=== PATIENT | female | born 1980 | race Caucasian/White ===

== ENCOUNTER → 2016-07-31 | Outpatient (CLI) | payer BC, OTHER | LOC: BMCIMAGING 13:47 | PROVIDERS: ATTEND Physician Assistant | DX: Z12.39 Encounter for other screening for malignant neoplasm of breast (principal); N60.02 Solitary cyst of left breast ==

== ENCOUNTER → 2016-10-17 | Outpatient (CLI) | payer BC | LOC: FIMAGING 07:35 | PROVIDERS: ATTEND Registered Nurse General Practice | DX: R10.2 Pelvic and perineal pain (principal); Z97.5 Presence of (intrauterine) contraceptive device ==